=== PATIENT | female | born 1945 | race Caucasian/White ===

== ENCOUNTER → 2016-07-15 | Outpatient (CLI) | payer MEDICARE ==
[~2016-07-15] MED LIST: CALCIUM + D 6001 TA1; CALCIUM + D SO1 EACH PO; FISH OIL 1,001000 M1 PO; FOSAMAX PO; LIPITOR40 MG PO; MULTI VITAMIN1 EACH PO; PROTONIX PO; RECLAST 55 MG/100 M IV; STOOL SOFTENER100 M1 PO; VITAMIN C W/R1000 M1 PO; ZOCOR PO
--- NOTE | ~2016-07-15 | MR103 ---
[facility] A Service of [facility] RADIOLOGY TEXT RESULTS PATIENT: JEB RODRIGUEZ LOCATION: [facility] : 43 UNIT #: [id number] AGE: [address]: Stephen Bello MD SEX: F ORDER DR: [id number] [facility] [address] [place], [place] [address] [id number] O MR#: [id number] #: [id number] NAME: JEB RODRIGUEZ. : 1945 SEX: F STUDY DATE/TIME: 07/15/2016 7:49 UNIT: [facility] ROOM: STUDY DESCRIPTION: MR Knee Wo Contrast Lt Attending Physician: Stephen Bello M.D. Ordering Physician: Stephen Bello M.D. Primary Care Physician: Aamir Pearce M.D. MRI CENTER REPORT This report is preliminary unless electronic signature is present. EXAM MRI of the left knee without contrast. HISTORY 68-year-old female left knee pain x 4 months. Pain anterior lateral aspect of the knee. Knee pops. States has had years of pain but recently getting worse. COMPARISON Left knee films 07/13/2016. FINDINGS Multiplanar multiecho imaging was performed of the left knee utilizing a high field magnet dedicated protocol. Examination demonstrates moderate to severe tricompartment osteoarthritis of the knee with lateral compartment predominance. There is extensive full-thickness cartilage loss lateral femoral condyle and lateral tibial plateau. Minimal knee effusion. In the lateral compartment there is a diffuse degenerative tear lateral meniscus, primarily representing a degenerative tear along the inner margin of the posterior horn, but also diffuse degeneration of the anterior horn. No defined type of tear or displaced meniscal fragment. Diffuse full-thickness cartilage loss. In the medial compartment myxoid degeneration of the medial meniscus, but no defined tear. Extensive moderate-grade chondromalacia medial femoral condyle with prominent subarticular osteophytes medial femoral condyle. This is predominately off the posterior weightbearing aspect of the medial femoral condyle. In the patellofemoral compartment there is high-grade chondromalacia lateral patellar facet with full-thickness cartilage loss and moderate grade chondromalacia medial patellar facet. There is lateral subluxation of the patella and corresponding high-grade chondromalacia lateral femoral trochlea. [facility] A Service of [facility] RADIOLOGY TEXT RESULTS PATIENT: JEB RODRIGUEZ LOCATION: [facility] : 43 UNIT #: [id number] AGE: [address]: Stephen Bello MD SEX: F ORDER DR: Anterior cruciate ligament demonstrates myxoid degeneration. The posterior cruciate ligament appears intact. There is nonspecific edema superficial and deep to the MCL. The lateral collateral ligament complex appears intact. Extensor mechanism unremarkable. Extraarticular soft tissues demonstrates mild prepatellar pretibial edema. Small amount of fluid distends the G S bursa, but no sizeable popliteal cyst. IMPRESSION 1. Moderately advanced tricompartment osteoarthritis of the left knee with lateral compartment and patellofemoral compartment prominence as detailed above. Joint effusion suggests active synovitis. 2. Diffuse degeneration and probable degenerative tear inner margin posterior horn and midbody segment lateral meniscus, but no defined type of tear displaced meniscal fragment. 3. 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 4. Small amount of subchondral edema in the far anterior lateral aspect of the lateral tibial plateau with associated subchondral cystic change. This measures less than a centimeter. Dictated by... Paulina Hancock M.D. THIS IS AN ELECTRONICALLY VERIFIED REPORT Paulina Hancock M.D. at 07/17/2016 5:02 PM Stacy TD: 07/17/2016 10:54 JOB #: [id number] MRI CENTER REPORT COPY
== END | disposition home or self-care (01) ==
LOC: CMRI 07:19
DX: M25.562 Pain in left knee (principal); M17.12 Unilateral primary osteoarthritis, left knee; M25.462 Effusion, left knee; M23.301 Other meniscus derangements, unspecified lateral meniscus, left knee; M23.304 Other meniscus derangements, unspecified medial meniscus, left knee; R60.0 Localized edema
CPT/HCPCS: 73721

== ENCOUNTER 2016-08-12 12:40 | Inpatient (IN) | payer MEDICARE ==
--- NOTE | ~2016-08-12 | OR ---
Unit #: [id number] #: [id number] Patient: JEB RODRIGUEZ [id number] [address] [address] [id number] I MR#: [id number] NAME: JEB RODRIGUEZ. ROOM: 326 Date of Procedure: 08/13/2016 Admission Date: 08/12/2016 Surgeon: John Todd M.D. : 1945 Attending Physician: Katie Linares M.D. Primary Care Physician: Aamir Pearce M.D. OPERATIVE REPORT JOB NOTE: CC: PRIMARY CARE PHYSICIAN INDICATIONS FOR PROCEDURE Esophagogastroduodenoscopy with biopsies. INDICATIONS FOR PROCEDURE The patient with upper GI bleeding, anemia of acute blood loss, undergoing upper endoscopy. MEDICATIONS Versed and fentanyl. POSTOPERATIVE FINDINGS 1. No varices. Small hiatal hernia. 2. Gastric remnant appears normal. Minimal gastritis noted. Biopsies taken. 3. There were several superficial ulcers in the proximal jejunum past the anastomosis. There were all clean base with no active bleeding or stigmata of recent bleeding. PLAN Continue with PPI therapy and supportive care. Watch H and H and transfuse further if needed. Treat for H pylori if positive. DESCRIPTION OF PROCEDURE The patient was explained of the procedure, risks, and benefits along with risks and benefits of anesthesia. Endo team was brought to the ICU. Conscious sedation was given using Versed and fentanyl. The scope was then passed down the mouth into the esophagus, stomach, duodenum through the anastomosis into the proximal jejunum. Findings as described. Biopsies taken. Gently, I pulled the scope out of the patient's mouth. She tolerated it well. Dictated by... Pebbles Branham/talia TD: 08/13/2016 22:06 JOB #: [id number] Unit #: [id number] #: [id number] Patient: JEB RODRIGUEZ OPERATIVE REPORT Page 1 of 1 X John Todd MD X PROCEDURE OPERATIVE NOTE
--- NOTE | ~2016-08-12 | CT4 ---
[facility] A Service of [facility] RADIOLOGY TEXT RESULTS PATIENT: JEB RODRIGUEZ LOCATION: [facility] 326-01 : 43 UNIT #: [id number] AGE: [address]: Katie Linares MD SEX: F ORDER DR: [id number] [facility] [address] [place], [place] [address] [id number] I MR#: [id number] Acc #: [id number] NAME: JEB RODRIGUEZ. : 1945 SEX: F STUDY DATE/TIME: 08/12/2016 16:14 UNIT: CEDOF ROOM: 20310 STUDY DESCRIPTION: CT Abd and Pelv Wo Cont Attending Physician: Katie Linares M.D. Ordering Physician: Jim De La Cruz D.O. Primary Care Physician: Aamir Pearce M.D. MEDICAL IMAGING REPORT This report is preliminary unless electronic signature is present EXAM CT abdomen and pelvis without contrast. HISTORY Nausea and vomiting with blood this morning. Abdominal pain, history of gastric bypass, cholecystectomy, hysterectomy, and hiatal hernia repair. TECHNIQUE Axial images performed through the abdomen and pelvis without contrast. Multiplanar reconstructed images reviewed at a workstation. This CT exam was performed with one or more of the following radiation dose reduction techniques: automatic exposure control, adjustment of mA and/or kV according to patient size, and iterative reconstruction. FINDINGS ABDOMEN: Lung bases unremarkable except for bibasilar scarring. No effusions. Patient is post cholecystectomy. Liver and spleen are unremarkable. Pancreas demonstrates atrophy. Right kidney appears normal. The left kidney unremarkable except for a small focus of cortical calcification left mid pole. No discernible mass. Visualized GI tract unremarkable. Retroperitoneum unremarkable. The patient is status post gastric bypass surgery. There is exaggerated lumbar lordosis with grade 1 spondylolisthesis L5 on S1. There is multilevel lower lumbar spine facet disease. No definite pars defect is seen. Degenerative change also seen in the upper lumbar spine as well as within the spinous processes. Surgical clips are noted along the anterior abdominal wall. IMPRESSION 1. No acute intraabdominal or intrapelvic pathology identified. Postsurgical changes as noted. [facility] A Service of [facility] RADIOLOGY TEXT RESULTS PATIENT: JEB RODRIGUEZ LOCATION: [facility] 326-01 : 43 UNIT #: [id number] AGE: [address]: Katie Linares MD SEX: F ORDER DR: 2. Multifocal degenerative disc disease, facet arthropathy, and degeneration within the spinous processes. Dictated by... Paulina Hancock M.D. THIS IS AN ELECTRONICALLY VERIFIED REPORT Paulina Hancock M.D. at 08/13/2016 10:51 PM ANDRÉS/wilson TD: 08/13/2016 07:09 JOB #: [id number] MEDICAL IMAGING REPORT Page 1 of 1 COPY
--- NOTE | ~2016-08-12 | NM18 ---
[facility] A Service of [facility] RADIOLOGY TEXT RESULTS PATIENT: JEB RODRIGUEZ LOCATION: [facility] 326- : 43 UNIT #: [id number] AGE: [address]: Katie Linares MD SEX: F ORDER DR: [id number] [place] [id number] [facility]. [place], [place] [address] [id number] I MR#: [id number] Acc #: [id number] NAME: JEB RODRIGUEZ. : 1945 SEX: F STUDY DATE/TIME: 08/15/2016 13:56 UNIT: [address] ROOM: [address] [place] [address] DESCRIPTION: NM GI Bleeding Scan Attending Physician: Katie Linares M.D. Ordering Physician: Katie Linares M.D. Primary Care Physician: Aamir Pearce M.D. MEDICAL IMAGING REPORT This report is preliminary unless electronic signature is present EXAM INDICATIONS GI bleeding study INDICATIONS Passing blood clots lately. The patient has had upper and prior lower endoscopy with a history of gastric bypass. Upper scope 2 days ago and upper and lower scopes also today. TECHNIQUE The patient's red blood cells were tagged with 22 mCi of technetium 99m pertechnetate. FINDINGS Anterior images were obtained of the lower abdomen and pelvis every 5 minutes up to 2 hours. No gastrointestinal bleeding is identified. IMPRESSION This to get the study was carried out to 2 hours and there is no active GI bleeding visualized. The study covers from the bottom of the heart down through the pelvis. STAT * RESULT Dictated by... Davey Ruvalcaba M.D. THIS IS AN ELECTRONICALLY VERIFIED REPORT Davey Ruvalcaba M.D. at 08/15/2016 4:36 PM [facility] A Service of [facility] RADIOLOGY TEXT RESULTS PATIENT: JEB RODRIGUEZ LOCATION: [facility] 326-01 : 43 UNIT #: [id number] AGE: [address]: Katie Linares MD SEX: F ORDER DR: FREDY/tamy TD: 08/15/2016 16:33 JOB #: [id number] MEDICAL IMAGING REPORT Page 1 of 1 COPY
--- NOTE | ~2016-08-12 | DS ---
Unit #: [id number] #: [id number] Patient: JEB RODRIGUEZ [id number] [address] [place], [place] [address] [id number] MR#: [id number] NAME: JEB RODRIGUEZ. ROOM: 326 Age: 71 Sex: F Admission Date: 08/12/2016 : 1945 Discharge Date: 08/17/2016 Attending Physician: Katie Linares M.D. Primary Care Physician: Aamir Pearce M.D. DISCHARGE SUMMARY ADMISSION DIAGNOSES 1. Gastrointestinal bleed. 2. Hypertension. 3. Status post left total knee arthroplasty. CONSULTANTS 1. John Todd M.D., GI Service. 2. Dr. Linder for Critical Care/Pulmonary management. PROCEDURES On 08/13/2016, EGD with biopsy. Postoperative findings; no varices. Small hiatal hernia. Gastric remnant appears normal. Minimal gastritis. Biopsies taken. Several superficial ulcers in proximal jejunum past the anastomosis, all clean with no active bleeding or stigmata of recent bleeding. On 08/15/2016, procedure colonoscopy to cecum and push enteroscopy. Postoperative findings; colonoscopy done, where it shows diverticulosis. A lot of altered blood in the entire colon. However, after lavaging extensively, no active bleeding was seen. A few small polyps were seen and left alone. Large internal hemorrhoids. Push enteroscopy was carried out to the first 60 cm and the jejunum which was unremarkable other than ulcers, which are small and superficial noted right past the anastomosis and likely to be causing the bleeding. On 08/15/2016, GI bleeding study. Findings; anterior images were obtained of the lower abdomen and pelvis every 5 minutes up to 2 hours. No GI bleeding was identified. DIAGNOSTIC STUDIES LABORATORY RESULTS: Most recent WBC 8.0, hemoglobin 10.3, hematocrit 32.0, platelets 144,000. Sodium 138, potassium 3.5, chloride 108, CO2 of 22, glucose 112, BUN 7, creatinine 0.7, calcium 8.1. Hepatitis panel nonreactive. INR 1.1. ANATOMICAL PATHOLOGY REPORT: Gastric endoscopic biopsy; final diagnosis, gastric antral and fundic-type mucosa with chronic active gastritis with reactive-regenerative atypia. No intestinal metaplasia or neoplasia identified. Lymphoid aggregates present in the lamina propria. No H. pylori like organisms identified by special stain. IMAGING STUDIES: Ultrasound of the abdomen, date of study was 08/13/2016. Impression; suspected mild fatty infiltration of the liver. Otherwise, Unit #: [id number] #: [id number] Patient: JEB RODRIGUEZ unremarkable exam. This patient is postcholecystectomy. CONDITION Stable. DISPOSITION Home. DISCHARGE MEDICATIONS Docusate sodium 100 mg p.o. at bedtime; Lipitor 40 mg p.o. at bedtime; fish oil 1000 mg softgel one p.o. b.i.d.; multivitamin one p.o. daily; calcium plus D soft chewable tablet one p.o. b.i.d.; Fluzone 0.5 mL on a.m. on date of discharge, unless contraindicated; Protonix 40 mg p.o. daily, prescription written for #30 plus one refill written. DISCHARGE INSTRUCTIONS 1. The patient will be discharged home with the assistance of her family. 2. Healthy heart diet per order of Dr. Todd. The patient is to call and schedule followup appointment to be seen by her primary care physician in one week. She is to call and schedule followup appointment with Dr. Todd in 2 weeks. The patient is also to call and schedule followup appointment with Dr. Linder in 2 weeks to follow up on obstructive sleep apnea and for further evaluation of that condition on an outpatient basis. HOSPITAL COURSE The patient is a 71-year-old female, who presented to [facility] on the date of admission with complaints of vomiting blood. The patient has a history of gastric bypass and right total knee arthroplasty and was started on full-dose aspirin 325 mg tablet one p.o. b.i.d. The patient started feeling bloated and started vomiting bright red blood earlier in the morning. The patient was also noted to vomit blood in the emergency department. She was noted to be hypotensive with systolic blood pressure in the 80s. She was admitted to the hospital for further evaluation and management of the above-referenced condition. Please refer to history and physical report for complete details. 1. GI bleed. Dr. John Todd was consulted and the patient underwent a complete GI evaluation as indicated under dictation above. The patient tolerated the procedures well. She reported having some dark tarry stools, which have since resolved. The patient was initially placed on IV Sandostatin drip, which was subsequently changed to Protonix IV drip. The patient has been stable. The patient received a total of 4 units of packed red blood cells throughout the hospital course. Hemoglobin and hematocrit are stable today, hemoglobin 10.3 and hematocrit 32.0. The patient is asymptomatic. She is tolerating food and fluids well at this time. She has been evaluated by Dr. Todd today and is to follow up with him in 2 weeks. The patient has been given a prescription for Protonix 40 mg p.o. daily. The patient was also noted to have acute hypoxic respiratory failure that was not present on admission. At that point, the patient was evaluated by Dr. Linder, who followed her throughout the hospital course. Please note, the patient was also evaluated and managed by Dr. Linder for critical care management throughout the hospital stay. The patient was noted to have possible obstructive sleep apnea. The patient has had no complications in this regard during the hospital course. The patient was advised to follow up with Dr. Linder per his orders in 2 weeks for outpatient evaluation and management of this condition. 2. Hypokalemia. The patient was noted to have hypokalemia, for which potassium was replaced. Potassium is stable today at 3.5. Unit #: [id number] #: [id number] Patient: JEB RODRIGUEZ 3. The patient's vital signs and labs are stable today. She is awake, alert, and oriented x3. She is actively requesting to be discharged home. She has been evaluated by Dr. Linares and discharged home as per above-referenced dictation. Dictated by... Juani David A.P.R.N. for Pebbles [place]/talia TD: 08/18/2016 02:46 JOB #: [id number] DISCHARGE SUMMARY Page 1 of 1 X Juani David APRN X DISCHARGE SUMMARY
--- NOTE | ~2016-08-12 | CO ---
Unit #: [id number] #: [id number] Patient: JEB RODRIGUEZ [id number] [address] [address] [id number] MR#: [id number] NAME: JEB RODRIGUEZ. ROOM: Age: 71 Sex: F Admission Date: 08/12/2016 : 1945 Attending Physician: Jim De La Cruz D.O. Primary Care Physician: Aamir Pearce M.D. CONSULTATION REPORT REASON FOR CONSULTATION Critical management. CHIEF COMPLAINT Vomiting blood. HISTORY OF PRESENT ILLNESS This patient basically is a 71-year-old female with a past medical history significant for gastric bypass, hysterectomy, right knee replacement and gallbladder surgery, history of gastroesophageal reflux disease. The patient takes high dose aspirin at home. The patient presents with the complaint of nausea, vomiting and vomited blood. The patient became hypotensive, given IV fluids. Blood pressure is stable. The patient feels slightly weak. I am seeing her at bedside. The patient denies any headache, blurry vision. No chest pain. PAST MEDICAL HISTORY As described above. SOCIAL HISTORY Nonsmoker. No alcohol. No drug abuse. FAMILY HISTORY None as per record. ALLERGIES Have been reviewed. MEDICATION As per MAR, has been reviewed. PHYSICAL EXAMINATION VITAL SIGNS: Temperature 98. Pulse 87. Respiration 12. Blood pressure 130/70. NEUROLOGIC: Awake, alert, oriented. No neuro deficit. HEENT: PERRLA. NECK: Supple. No JVD. CHEST: Bilateral air entry. Bilateral mild rhonchi. GASTROINTESTINAL: Nontender. Soft. Bowel sounds positive. EXTREMITIES: No edema. SKIN: No rash. LYMPHATIC: No lymphadenopathy. DIAGNOSTIC STUDIES Unit #: [id number] #: [id number] Patient: JEB RODRIGUEZ Labs and imaging have been reviewed. Hemoglobin is 11, hematocrit 34, platelet count 184. ASSESSMENT 1. GI bleed. 2. Acute blood loss anemia. 3. History of gastric bypass. 4. History of dyslipidemia. PLAN 1. Admit the patient in ICU. 2. PPI. 3. GI consulted. 4. Hemoglobin and hematocrit monitoring. 5. Transfuse blood as needed. 6. GI and DVT prophylaxis. The patient will be closely monitored. Please see orders for detailed plan. Thank you very much for this consultation. Dictated by... Pebbles Urbina TD: 08/12/2016 15:30 JOB #: [id number] CONSULTATION REPORT Page 1 of 1 X Pamela Linder MD CONSULTATION REPORT
--- NOTE | ~2016-08-12 | EKG ---
PATIENT: JEB RODRIGUEZ UNIT #: [id number] Ventricular Rate: 93 BPM Atrial Rate: 93 BPM P-R Interval: 140 ms QRS Duration: 76 ms Q-T Interval: 362 ms QTC Calculation(Bezet): 450 ms P Champion: 26 degrees Calculated R Champion: -28 degrees Calculated T Champion: 23 degrees Diagnosis Line: Normal sinus rhythm with sinus arrhythmia Diagnosis Line: Normal ECG Diagnosis Line: No previous ECGs available Diagnosis Line: Confirmed by MARGARITA HOLLOWAY MD ([id number]) on 08/14/2016 Diagnosis Line: 10:55:15 PM INTERPRETING MD: AMIE SCOTT
--- NOTE | ~2016-08-12 | OR ---
Unit #: [id number] #: [id number] Patient: JEB RODRIGUEZ [id number] [address] [place], [place] [address] [id number] I MR#: [id number] NAME: JEB RODRIGUEZ. ROOM: 326 Date of Procedure: 08/15/2016 Admission Date: 08/12/2016 Surgeon: John Todd M.D. : 1945 Attending Physician: Katie Linares M.D. Primary Care Physician: Aamir Pearce M.D. OPERATIVE REPORT PROCEDURE PERFORMED Colonoscopy to cecum and push enteroscopy. INDICATIONS FOR PROCEDURE The patient with persistent gastrointestinal bleeding. She is status post gastric bypass. EGD shows some small superficial ulcers in the proximal jejunum unlikely to be causing bleeding. She is undergoing colonoscopy as well as if needed push enteroscopy for further workup at this time. MEDICATIONS Monitored anesthesia. POSTOPERATIVE FINDINGS 1. Colonoscopy was done first shows diverticulosis. There was a lot of altered blood in the entire colon; however, after lavaging extensively, no active bleeding was seen. A few small polyps were seen and left alone. 2. Large internal hemorrhoids. 3. Push enteroscopy was carried out to the first 60 cm in the jejunum which was unremarkable other than the ulcers, which are small and superficial noted right past the anastomosis unlikely to be causing the bleeding. PLAN We will continue watch H and H and transfuse. We will continue PPI therapy. We will get a GI bleeding scan. DESCRIPTION OF PROCEDURE The patient was explained of the procedure, risks, and benefits along with the risks and benefits of anesthesia. She was brought to the endoscopy room. Propofol anesthesia was given. Rectal exam was done, which was normal. Colonoscope was lubricated, passed up the rectum, advanced under direct vision all the way to the cecum. Extensive lavaging was done. Findings have been described above. No active bleeding or source of bleeding was seen. The scope was then gently pulled out. We used a clean colonoscope for push enteroscopy at this time. The scope was passed down the mouth into the esophagus, stomach, through the anastomosis into the proximal 60 to 80 cm into the jejunum. No active bleeding or signs of bleeding was seen in the entire area. Small ulcer seen in the proximal jejunum right past the anastomosis where unlikely to be causing bleeding. Gently, the scope was pulled out. She tolerated it well. No major complications were seen. Unit #: [id number] #: [id number] Patient: JEB RODRIGUEZ Dictated by... Pebbles Branham/talia TD: 08/16/2016 01:50 JOB #: [id number] OPERATIVE REPORT Page 1 of 1 X John Todd MD X PROCEDURE OPERATIVE NOTE
--- NOTE | ~2016-08-12 | US6 ---
[facility] A Service of [facility] RADIOLOGY TEXT RESULTS PATIENT: JEB RODRIGUEZ LOCATION: [facility] 326- : 43 UNIT #: [id number] AGE: [address]: Katie Linares MD SEX: F ORDER DR: [id number] [facility] [address] [place], [place] [address] [id number] MR#: [id number] Acc #: [id number] NAME: JEB RODRIGUEZ. : 1945 SEX: F STUDY DATE/TIME: 08/13/2016 14:20 UNIT: [address] ROOM: [facility] STUDY DESCRIPTION: US Abdominal Limited Attending Physician: Katie Linares M.D. Ordering Physician: John Todd M.D. Primary Care Physician: Aamir Pearce M.D. MEDICAL IMAGING REPORT This report is preliminary unless electronic signature is present EXAM Limited abdominal sonogram HISTORY 68-year-old female elevated LFTs, prior cholecystectomy and gastric bypass surgery. Real-time examination demonstrates diffuse increased echogenicity of the liver could reflect fatty infiltration. No focal mass lesions identified. No intra or extrahepatic ductal dilatation is identified. Common bile duct measures 2.8 mm. The gallbladder surgically absent. Right kidney unremarkable. No free fluid. Region of the pancreas unremarkable but poorly visualized due to bowel gas. IMPRESSION Suspected mild fatty infiltration of the liver, otherwise unremarkable exam of this patient post cholecystectomy. Dictated by... Paulina Hancock M.D. THIS IS AN ELECTRONICALLY VERIFIED REPORT Paulina Hancock M.D. at 08/14/2016 10:05 AM ANDRÉS/mark TD: 08/14/2016 07:41 JOB #: [id number] MEDICAL IMAGING REPORT Page 1 of 1 COPY
--- NOTE | ~2016-08-12 | CO ---
Unit #: [id number] #: [id number] Patient: JEB RODRIGUEZ [id number] [address] [address] [id number] I MR#: [id number] NAME: JEB RODRIGUZE. ROOM: 326 Age: 71 Sex: F Admission Date: 08/12/2016 : 1945 Attending Physician: Katie Linares M.D. Primary Care Physician: Aamir Pearce M.D. Consultation Date: 08/13/2016 CONSULTATION REPORT PRIMARY CARE PHYSICIAN Dr. Connell. REASON FOR CONSULTATION GI bleeding. HISTORY OF PRESENTING ILLNESS Ms. Rodriguez is a 71-year-old pleasant female. She presented yesterday to the emergency room with complaints of vomiting of blood. It started yesterday. She had several bouts. She was brought to the emergency room where she was initially hypotensive, became stable after some resuscitation with IV fluids etc. She since then has not been throwing up. Her hemoglobin did drop from value of 11 two days ago to 7.2 yesterday and required blood transfusions. She had gastric bypass surgery in 1982, has not really had any ulcers or other upper GI problems in the interim. PAST MEDICAL HISTORY Significant for gastric bypass, hysterectomy, right knee replacement. Recently, she is status post gallbladder resection. ALLERGIES None. MEDICATIONS At home included recently taking aspirin 325 along with some NSAIDs after her knee surgery, Lipitor as well as fish oil which would stop for 2 weeks. SOCIAL HISTORY Nonsmoker. Nonalcoholic. FAMILY HISTORY Noncontributory. REVIEW OF SYSTEMS A complete 10-point review of systems was done, which is unremarkable other than as mentioned above. PHYSICAL EXAMINATION VITAL SIGNS: Stable now on temperature 98, pulse 107, blood pressure 131/97. HEENT: Pupils equal and reactive. Sclerae anicteric. Oral mucosa moist. NECK: No JVD. No lymphadenopathy. Unit #: [id number] #: [id number] Patient: JEB RODRIGUEZ CHEST: Clear to auscultation bilaterally. CARDIOVASCULAR: Regular rate and rhythm. No murmurs. ABDOMEN: Soft, nontender, and nondistended. EXTREMITIES: Without clubbing, cyanosis, or edema. NEUROLOGIC: Intact. SKIN: Warm and dry. DIAGNOSTIC STUDIES LABORATORY RESULTS: Hemoglobin of 7.2, dropped from 11; platelet count of 137. AST 50, ALT 101. Lipase of 14. ASSESSMENT AND PLAN 1. The patient with significant upper gastrointestinal bleeding, which is acute possibility of ulcer disease, also given her overweight as well as abnormal LFTs. Liver cirrhosis cannot be ruled out with variceal bleeding possibly. She will be started on Protonix as well as octreotide infusions and upper endoscopy will be planned urgently. We will continue with supportive care. 2. Anemia secondary to acute blood loss, transfuse, watch hemoglobin and hematocrit give further transfusions as needed also. 3. Abnormal LFTs, most likely related to nonalcoholic steatohepatitis. We will check hepatitis profile. We will also get a right upper quadrant ultrasound for further evaluation. Thank you, Dr. Ramirez, for this interesting consult. We will follow along. Dictated by... Pebbles Branham/talia TD: 08/13/2016 23:31 JOB #: [id number] CONSULTATION REPORT Page 1 of 1 X John Todd MD X CONSULTATION REPORT
--- NOTE | ~2016-08-12 | HP ---
Unit #: [id number] #: [id number] Patient: JEB RODRIGUEZ [id number] [address] [address] [id number] E MR#: [id number] NAME: JEB RODRIGUEZ ROOM: Age: 71 Sex: F Admission Date: 08/12/2016 : 1945 Attending Physician: Jim De La Cruz D.O. Primary Care Physician: Aamir Pearce M.D. HISTORY AND PHYSICAL CHIEF COMPLAINT Vomiting blood. HISTORY OF PRESENT ILLNESS The patient is a 71-year-old female with history of gastric bypass and right knee replacement last Sunday and was started on full dose aspirin 325 mg. The patient presented to the emergency room complaining of the abdominal bloating. The patient states the patient was changing the dressing earlier this morning and was feeling bloated. The patient started vomiting bright red blood earlier this morning. The patient vomited blood again in the emergency room. The patient was also found to be hypotensive with the systolic blood pressure in the eighties. The patient denies any fever, chills, chest pain, palpitations. The patient stated the patient's left knee surgical wound is stable and there is no drainage or any pain. The patient is being admitted for the above reason. The patient's hemoglobin was found to be 11. PAST MEDICAL HISTORY History of gastroesophageal reflux disease. PAST SURGICAL HISTORY Gastric bypass, hysterectomy, right knee replacement and hiatal hernia repair. SOCIAL HISTORY No history of smoking cigarettes or drinking alcohol, any illicit drug abuse. FAMILY HISTORY Reviewed and none. ALLERGIES No known drug allergies. HOME MEDICATIONS 1. Multivitamin with calcium. 2. Vitamin D. 3. Lipitor. 4. Stool softeners. 5. Fish oil. PHYSICAL EXAMINATION GENERAL APPEARANCE: The patient is laying on the bed not in acute distress. Unit #: [id number] #: [id number] Patient: JEB RODRIGUEZ VITAL SIGNS: Temperature 98.2. Pulse 107. Respiratory rate 18. Blood pressure 131/97 and that is down to 80/60 and sating 97% on room air. HEENT: Head: Atraumatic, normocephalic. Pupils equal, round, reacting to light and accommodation. Dry mucous membrane. NECK: Supple. No JVD. LUNGS: Decreased air entry at the bases. HEART: Regular rate and rhythm. ABDOMEN: Soft. Positive for feels the bloating and discomfort. EXTREMITIES: No cyanosis. No clubbing. Status post left knee replacement with the surgical site is clean, dry and intact. DIAGNOSTIC STUDIES LABORATORY: Glucose 140, BUN 16, creatinine 0.5, sodium 138, potassium 4.6, chloride 107, bicarb 24, calcium 8.6, albumin 3.2, AST 31, ALT 50, alkaline phosphatase 101. Lipase 14. INR 1.1. Troponin less than 0.05. WBC 8.7, hemoglobin 11.1, hematocrit 34.9, platelets 184. CARDIOVASCULAR: The EKG shows normal sinus rhythm with a rate of 93 beats per minute, QTC of 450. ASSESSMENT 1. GI bleed. 2. Hypertension. 3. Status post left total knee replacement. PLAN Admit the patient to the ICU with telemetry. The patient will be bolused with IV fluids, normal saline at 150 mL/hour for fluid replacement and continue with the Protonix and octreotide and awaiting the GI consult for emergent endoscopy. Repeat the labs, CBC now, and transfuse the hemoglobin if it less than 8. Check the guaiac test if it is not done. Check the lactic level also. Further recommendations will follow as more lab results are available. Dictated by Pebbles Honeycutt TD: 08/12/2016 18:03 JOB #: [id number] HISTORY AND PHYSICAL Page 1 of 1 X X HISTORY AND PHYSICAL
[~2016-08-12 12:40] MED LIST changes: -CALCIUM + D SO1 EACH PO; -FISH OIL 1,001000 M1 PO; -LIPITOR40 MG PO; -MULTI VITAMIN1 EACH PO; -PROTONIX PO; -STOOL SOFTENER100 M1 PO; -VITAMIN C W/R1000 M1 PO
[2016-08-12 13:10] LABS: BASOPHIL# 0.1 X10e3 (0-0.3); BASOPHIL% 0.8 % (0-2.5); EOSINOPHIL# 0.3 X10e3 (0-0.7); EOSINOPHIL% 3.8 % (0.0-7.0); HEMATOCRIT 34.9 % (35.0-45.0); HEMOGLOBIN 11.1 gm/dL (12.0-16.0); LYMPHOCYTE# 1.3 X10e3 (1.0-3.5); LYMPHOCYTE% 15.2 % (17.0-45.0); MEAN CELL VOLUME 81.4 FL (83-96); MEAN CORPUSCULAR HEMOGLOBIN 25.8 PG (28-34); MEAN CORPUSCULAR HGB CONC 31.7 g/dL (30-36); MEAN PLATELET VOLUME 9.7 FL (6.5-11.5); MONOCYTE# 0.7 X10e3 (0-1.0); MONOCYTE% 8.3 % (3.0-12.0); NEUTROPHIL# 6.3 X10e3 (1.5-7.1); NEUTROPHIL% 71.9 % (40-75); PLATELET COUNT 184 X10e3 (140-420); RED BLOOD COUNT 4.29 X10e (3.90-5.30); RED CELL DISTRIBUTION WIDTH 15.5 % (11.0-15.5); WHITE BLOOD COUNT 8.7 X10e3 (4.0-10.5)
[2016-08-12 13:11] LABS: DIFF IND NO
[2016-08-12 13:22] LABS: INR 1.1; PARTIAL THROMBOPLASTIN TIME 23.8 SECONDS (23.5-31.3)
[2016-08-12 13:38] LABS: ALBUMIN SERUM 3.2 g/dL (3.5-5.0); BILIRUBIN, DIRECT 0.1 mg/dL (0.0-0.2); BILIRUBIN,INDIRECT 0.2 mg/dL (0.0-0.9); BILIRUBIN,TOTAL 0.3 mg/dL (0.2-2.0); CALCIUM SERUM 8.6 mg/dL (8.4-10.2); CREATININE SERUM 0.5 mg/dL (0.6-1.4); POTASSIUM 4.6 mmol/L (3.5-5.1); PROTEIN TOTAL SERUM 6.2 g/dL (6.0-8.3)
[2016-08-12] MEDS ORDERED: MULTI VITAMIN1 EACH PO (15:12)
[2016-08-12] MEDS ORDERED: CALCIUM + D SO1 EACH PO (15:13)
[2016-08-12] MEDS ORDERED: LIPITOR40 MG PO (15:13)
[2016-08-12] MEDS ORDERED: VITAMIN C W/R1000 M1 PO (15:13)
[2016-08-12] MEDS ORDERED: STOOL SOFTENER100 M1 PO (15:14)
[2016-08-12] MEDS ORDERED: FISH OIL 1,001000 M1 PO (15:14)
[2016-08-12 17:03] LABS: POC - CKMB 1.8 ng/mL (0.0-7.9); POC - TROPONIN <0.05 ng/mL (<=0.05)
[2016-08-12 17:13] LABS: POC - CKMB 1.3 ng/mL (0.0-7.9); POC - TROPONIN <0.05 ng/mL (<=0.05)
[2016-08-12 18:09] LABS: BASOPHIL# 0.1 X10e3 (0-0.3); BASOPHIL% 0.7 % (0-2.5); EOSINOPHIL# 0.1 X10e3 (0-0.7); EOSINOPHIL% 0.6 % (0.0-7.0); HEMATOCRIT 29.7 % (35.0-45.0); HEMOGLOBIN 9.3 gm/dL (12.0-16.0); LYMPHOCYTE# 1.5 X10e3 (1.0-3.5); LYMPHOCYTE% 14.1 % (17.0-45.0); MEAN CELL VOLUME 82.7 FL (83-96); MEAN CORPUSCULAR HGB CONC 31.5 g/dL (30-36); MEAN PLATELET VOLUME 9.4 FL (6.5-11.5); MONOCYTE# 0.7 X10e3 (0-1.0); NEUTROPHIL% 77.6 % (40-75); PLATELET COUNT 175 X10e3 (140-420); RED BLOOD COUNT 3.59 X10e (3.90-5.30); RED CELL DISTRIBUTION WIDTH 15.4 % (11.0-15.5); WHITE BLOOD COUNT 10.3 X10e3 (4.0-10.5)
[2016-08-12 18:10] LABS: DIFF IND NO
[2016-08-12 21:25] LABS: HEMATOCRIT 27.3 % (35.0-45.0); HEMOGLOBIN 8.7 gm/dL (12.0-16.0)
[2016-08-12 23:17] LABS: HEMOGLOBIN 8.2 gm/dL (12.0-16.0)
[2016-08-13 02:15] LABS: HEMATOCRIT 22.5 % (35.0-45.0); HEMOGLOBIN 7.2 gm/dL (12.0-16.0)
[2016-08-13 07:35] LABS: BASOPHIL# 0.1 X10e3 (0-0.3); BASOPHIL% 0.7 % (0-2.5); EOSINOPHIL# 0.3 X10e3 (0-0.7); EOSINOPHIL% 2.4 % (0.0-7.0); HEMATOCRIT 25.9 % (35.0-45.0); HEMOGLOBIN 8.3 gm/dL (12.0-16.0); LYMPHOCYTE# 2.3 X10e3 (1.0-3.5); LYMPHOCYTE% 20.9 % (17.0-45.0); MEAN CELL VOLUME 82.3 FL (83-96); MEAN CORPUSCULAR HEMOGLOBIN 26.4 PG (28-34); MEAN CORPUSCULAR HGB CONC 32.1 g/dL (30-36); MEAN PLATELET VOLUME 9.6 FL (6.5-11.5); NEUTROPHIL# 7.2 X10e3 (1.5-7.1); PLATELET COUNT 137 X10e3 (140-420); RED BLOOD COUNT 3.14 X10e (3.90-5.30); RED CELL DISTRIBUTION WIDTH 15.7 % (11.0-15.5); WHITE BLOOD COUNT 10.8 X10e3 (4.0-10.5)
[2016-08-13 07:42] LABS: DIFF IND NO
[2016-08-13 08:01] LABS: BUN/CREATININE RATIO 33.33; CALCIUM SERUM 7.5 mg/dL (8.4-10.2); CREATININE SERUM 0.6 mg/dL (0.6-1.4); GLOM FILT RATE Estimated 90.4 mL/min (>60); POTASSIUM 4.6 mmol/L (3.5-5.1)
[2016-08-13 12:09] LABS: HEMATOCRIT 27.9 % (35.0-45.0)
[2016-08-13 16:04] LABS: HEMATOCRIT 24.3 % (35.0-45.0)
[2016-08-13 20:31] LABS: HEMATOCRIT 26.3 % (35.0-45.0); HEMOGLOBIN 8.3 gm/dL (12.0-16.0)
[2016-08-14 02:04] LABS: BASOPHIL# 0.1 X10e3 (0-0.3); BASOPHIL% 0.8 % (0-2.5); EOSINOPHIL# 0.7 X10e3 (0-0.7); EOSINOPHIL% 7.6 % (0.0-7.0); HEMATOCRIT 24.4 % (35.0-45.0); LYMPHOCYTE# 2.6 X10e3 (1.0-3.5); LYMPHOCYTE% 26.7 % (17.0-45.0); MEAN CELL VOLUME 82.5 FL (83-96); MEAN CORPUSCULAR HGB CONC 32.7 g/dL (30-36); MEAN PLATELET VOLUME 8.4 FL (6.5-11.5); MONOCYTE# 0.7 X10e3 (0-1.0); MONOCYTE% 7.6 % (3.0-12.0); NEUTROPHIL# 5.5 X10e3 (1.5-7.1); NEUTROPHIL% 57.3 % (40-75); PLATELET COUNT 128 X10e3 (140-420); RED BLOOD COUNT 2.96 X10e (3.90-5.30); RED CELL DISTRIBUTION WIDTH 15.9 % (11.0-15.5); WHITE BLOOD COUNT 9.6 X10e3 (4.0-10.5)
[2016-08-14 02:08] LABS: DIFF IND NO
[2016-08-14 02:27] LABS: ALBUMIN SERUM 2.6 g/dL (3.5-5.0); BILIRUBIN,TOTAL 0.5 mg/dL (0.2-2.0); BUN/CREATININE RATIO 28.33; CALCIUM SERUM 7.8 mg/dL (8.4-10.2); CREATININE SERUM 0.6 mg/dL (0.6-1.4); GLOM FILT RATE Estimated 90.4 mL/min (>60); PROTEIN TOTAL SERUM 4.8 g/dL (6.0-8.3)
[2016-08-14 10:15] LABS: HEMATOCRIT 27.1 % (35.0-45.0); HEMOGLOBIN 8.6 gm/dL (12.0-16.0)
[2016-08-14 18:19] LABS: HEMATOCRIT 32.6 % (35.0-45.0); HEMOGLOBIN 10.4 gm/dL (12.0-16.0)
[2016-08-15 00:01] LABS: HEMATOCRIT 26.6 % (35.0-45.0); HEMOGLOBIN 8.5 gm/dL (12.0-16.0)
[2016-08-15 06:36] LABS: HEMATOCRIT 23.1 % (35.0-45.0); HEMOGLOBIN 7.5 gm/dL (12.0-16.0); MEAN CELL VOLUME 82.4 FL (83-96); MEAN CORPUSCULAR HEMOGLOBIN 26.7 PG (28-34); MEAN CORPUSCULAR HGB CONC 32.4 g/dL (30-36); MEAN PLATELET VOLUME 8.9 FL (6.5-11.5); RED BLOOD COUNT 2.8 X10e (3.90-5.30); RED CELL DISTRIBUTION WIDTH 16.4 % (11.0-15.5); WHITE BLOOD COUNT 6.9 X10e3 (4.0-10.5)
[2016-08-15 07:33] LABS: CALCIUM SERUM 7.7 mg/dL (8.4-10.2); CREATININE SERUM 0.5 mg/dL (0.6-1.4); POTASSIUM 3.3 mmol/L (3.5-5.1)
[2016-08-15 12:43] LABS: HEMATOCRIT 25.5 % (35.0-45.0); HEMOGLOBIN 8.1 gm/dL (12.0-16.0)
[2016-08-15 18:00] LABS: HEMOGLOBIN 8.7 gm/dL (12.0-16.0)
[2016-08-16 06:59] LABS: HEMATOCRIT 28.8 % (35.0-45.0); HEMOGLOBIN 9.4 gm/dL (12.0-16.0)
[2016-08-16 08:42] LABS: ALBUMIN SERUM 2.6 g/dL (3.5-5.0); BILIRUBIN,TOTAL 0.9 mg/dL (0.2-2.0); BUN/CREATININE RATIO 8.33; CALCIUM SERUM 7.4 mg/dL (8.4-10.2); CREATININE SERUM 0.6 mg/dL (0.6-1.4); GLOM FILT RATE Estimated 90.4 mL/min (>60); MAGNESIUM 1.8 mg/dL (1.6-3.0); POTASSIUM 3.6 mmol/L (3.5-5.1); PROTEIN TOTAL SERUM 4.7 g/dL (6.0-8.3)
[2016-08-16 13:14] LABS: HEMATOCRIT 33.6 % (35.0-45.0); HEMOGLOBIN 10.8 gm/dL (12.0-16.0); MEAN CELL VOLUME 85.2 FL (83-96); MEAN CORPUSCULAR HEMOGLOBIN 27.5 PG (28-34); MEAN CORPUSCULAR HGB CONC 32.3 g/dL (30-36); MEAN PLATELET VOLUME 9.3 FL (6.5-11.5); RED BLOOD COUNT 3.94 X10e (3.90-5.30); RED CELL DISTRIBUTION WIDTH 16.2 % (11.0-15.5); WHITE BLOOD COUNT 9.1 X10e3 (4.0-10.5)
[2016-08-16 18:30] LABS: HEMATOCRIT 32.8 % (35.0-45.0); HEMOGLOBIN 10.6 gm/dL (12.0-16.0)
[2016-08-17 00:20] LABS: HA AB IGM (HEPPAN) Nonreactive (Nonreactive); HB CORE AB IGM (HEPPAN) Nonreactive (Nonreactive); HB S AG (HEPPAN) Nonreactive (Nonreactive); HEP C AB (HEPPAN) Nonreactive (Nonreactive); HEP C AB SIGNAL TO CUTOFF 0.59 ratio (<1.00)
[2016-08-17 00:41] LABS: HEMATOCRIT 29.9 % (35.0-45.0); HEMOGLOBIN 9.7 gm/dL (12.0-16.0)
[2016-08-17 06:30] LABS: HEMOGLOBIN 10.3 gm/dL (12.0-16.0); MEAN CELL VOLUME 84.5 FL (83-96); MEAN CORPUSCULAR HEMOGLOBIN 27.2 PG (28-34); MEAN CORPUSCULAR HGB CONC 32.2 g/dL (30-36); MEAN PLATELET VOLUME 9.2 FL (6.5-11.5); RED BLOOD COUNT 3.78 X10e (3.90-5.30); RED CELL DISTRIBUTION WIDTH 16.1 % (11.0-15.5)
[2016-08-17 07:08] LABS: CALCIUM SERUM 8.1 mg/dL (8.4-10.2); CREATININE SERUM 0.7 mg/dL (0.6-1.4); POTASSIUM 3.5 mmol/L (3.5-5.1)
[2016-08-17] MEDS ORDERED: PROTONIX PO (14:27)
== END 2016-08-17 15:40 | disposition home or self-care (01) | DRG 377 ==
LOC: CED 12:40 → CEDOF 17:17 → CICCU3 08-13 08:39 → C3A PCU 08-13 20:24
PROVIDERS: Emergency Medicine; Internal Medicine
PROC: 0DB68ZX Excision of Stomach, Via Natural or Artificial Opening Endoscopic, Diagnostic (ICD-10-PCS; 2016-08-13)
PROC: 30233N1 Transfusion of Nonautologous Red Blood Cells into Peripheral Vein, Percutaneous Approach (ICD-10-PCS; 2016-08-13 09:00)
PROC: 3E1H88Z Irrigation of Lower GI using Irrigating Substance, Via Natural or Artificial Opening Endoscopic (ICD-10-PCS; 2016-08-15)
PROC: 0DJD8ZZ Inspection of Lower Intestinal Tract, Via Natural or Artificial Opening Endoscopic (ICD-10-PCS; principal; 2016-08-15 08:45)
DX: K92.2 Gastrointestinal hemorrhage, unspecified (principal); J96.01 Acute respiratory failure with hypoxia; R57.1 Hypovolemic shock; I11.0 Hypertensive heart disease with heart failure; I50.9 Heart failure, unspecified; D62 Acute posthemorrhagic anemia; K21.9 Gastro-esophageal reflux disease without esophagitis; K57.90 Diverticulosis of intestine, part unspecified, without perforation or abscess without bleeding; K63.5 Polyp of colon; I95.1 Orthostatic hypotension; Z96.652 Presence of left artificial knee joint; K44.9 Diaphragmatic hernia without obstruction or gangrene; K29.70 Gastritis, unspecified, without bleeding; K64.8 Other hemorrhoids; E87.6 Hypokalemia; I25.10 Atherosclerotic heart disease of native coronary artery without angina pectoris; Z95.1 Presence of aortocoronary bypass graft; E78.5 Hyperlipidemia, unspecified; M48.06 Spinal stenosis, lumbar region; F32.9 Major depressive disorder, single episode, unspecified; F17.210 Nicotine dependence, cigarettes, uncomplicated; Z79.82 Long term (current) use of aspirin; Z79.4 Long term (current) use of insulin
CPT/HCPCS: 36415; 74176; 76705; 78278; 80048; 80053; 80074; 80076; 82553; 82947; 83605; 83690; 83735; 84132; 84484; 85014; 85018; 85025; 85027; 85610; 85730; 86850; 86900; 86901; 86923; 88305; 88312; 93005; 94640; 94760; 94761; 96361; 96374; 96375; 99285; A9560; C9113; J2250; J2354; J2405; J3010; P9016

== ENCOUNTER 2016-08-18 12:56 | Inpatient (IN) | payer MEDICARE ==
--- NOTE | ~2016-08-18 | CO ---
Unit #: [id number] #: [id number] Patient: JEB RODRIGUEZ [id number] [address] [place], [place] [address] [id number] I MR#: [id number] NAME: JEB RODRIGUEZ. ROOM: 54266 Age: 71 Sex: F Admission Date: 08/18/2016 : 1945 Attending Physician: Wes Calderon M.D. Primary Care Physician: Aamir Pearce M.D. Consultation Date: 08/19/2016 CONSULTATION REPORT REASON FOR CONSULTATION Left leg deep vein thrombosis. HISTORY OF PRESENT ILLNESS Ms. Rodriguez is a 71-year-old lady with a history of degenerative joint disease involving her left knee. She recently underwent arthroscopic surgery on her left knee and was placed on aspirin perioperatively. She has a history of gastric bypass and was told not to take aspirin in the past. She was admitted to [facility] a week ago with GI bleeding. Her workup included upper and lower endoscopy as well as a tagged red blood cell scan. There was no active bleeding noted on any of her evaluation. She was subsequently discharged, but now returns with swelling of her left leg. She was identified with thrombus in her left popliteal vein and left gastrocnemius vein. Consultation was requested at this time to evaluate the patient for possible inferior vena cava filter placement. At time of evaluation, she is on an IV heparin drip and has shown no evidence of further bleeding. Although she has some swelling in her left leg, she denies any significant discomfort of her leg. She denies any chest pain or shortness of breath to suggest pulmonary embolus. She has no prior history of deep vein thrombosis. She denies any family history of abnormal clotting problems. However, she did have a sister who of a pulmonary embolus following surgery on her knee. PAST MEDICAL HISTORY Morbid obesity and hyperlipidemia. PAST SURGICAL HISTORY Left knee arthroscopy. Right knee replacement, hysterectomy, cholecystectomy, reconstructive surgery on her right wrist for a spider bite. MEDICATIONS Docusate, Lipitor, fish oil, multivitamin, calcium plus D, and Protonix. ALLERGIES None. SOCIAL HISTORY She is single and lives in [place]. Her son recently moved in with her. She quit smoking more than 30 years ago. She does not drink alcohol. Unit #: [id number] #: [id number] Patient: JEB RODRIGUEZ FAMILY HISTORY Her father had coronary artery disease. Her mother was in good general health. REVIEW OF SYSTEMS 10-point review of systems is negative except for her recent GI bleed. PHYSICAL EXAMINATION VITAL SIGNS: Temperature 97.8, pulse 82, respirations 16, blood pressure 133/59. GENERAL APPEARANCE: Obese white female. Very pleasant and cooperative. Fully alert and oriented. Good mood. Appropriate affect. Fair historian. No acute distress. HEENT: Extraocular movements intact. No xanthelasma of the eyelids. Oral mucosa is pink and moist. NECK: No cervical bruits. No JVD. LUNGS: Clear bilaterally. No use of accessory respiratory muscles. HEART: Regular rate and rhythm without murmur. No extra heart sounds. ABDOMEN: Soft, nondistended, and nontender. No palpable masses. No palpable hepatomegaly or splenomegaly. EXTREMITIES: Hands and feet are pink and warm. There are recent incisions on the left knee with Steri-Strips over them. The incisions are all healing well with no erythema or drainage. Mild pitting edema of the left leg compared to the right. Both feet are pink and warm. DIAGNOSTIC STUDIES IMAGING STUDIES: I reviewed her venous Doppler study, which shows partially occlusive thrombus in her left popliteal vein as well as thrombus in her left gastrocnemius vein. These findings are consistent with subacute or even chronic thrombus. There was no evidence of acute deep vein thrombosis in her left leg. IMPRESSION 1. Deep vein thrombosis of the left popliteal vein following recent knee surgery. 2. Recent gastrointestinal bleed. Possibly from aspirin. No active bleeding currently. PLAN She is stable on a heparin drip. My recommendation would be to manage her deep vein thrombosis, primarily with anticoagulation if she has no evidence of further bleeding. If she has bleeding which would pose a contraindication to anticoagulation, then an inferior vena cava filter may be appropriate. These findings and recommendations were discussed with Dr. Wes Calderon. Dictated by... Pebbles Martinez/talia TD: 08/21/2016 05:45 JOB #: [id number] CC: . Unit #: [id number] #: [id number] Patient: JEB RODRIGUEZ CONSULTATION REPORT Page 1 of 1 X Self,Jeremie Graves MD X CONSULTATION REPORT
--- NOTE | ~2016-08-18 | DS ---
Unit #: [id number] #: [id number] Patient: JEB RODRIGUEZ [id number] [address] [place], [place] [address] [id number] I MR#: [id number] NAME: JEB RODRIGUEZ. ROOM: 47709 Age: 71 Sex: F Admission Date: 08/18/2016 : 1945 Discharge Date: 08/19/2016 Attending Physician: Wes Calderon M.D. Primary Care Physician: Aamir Pearce M.D. DISCHARGE SUMMARY DISCHARGE DIAGNOSES 1. Left lower extremity deep vein thrombosis. 2. Iron-deficiency anemia. 3. Recent gastrointestinal bleed. 4. History of left knee surgery. HOSPITAL COURSE The patient is a 71-year-old female, who presents to [facility] Emergency Department with complaint of left lower extremity swelling. Apparently, the patient noted the swelling approximately 2 days prior to presentation. It progressed over those 2 days and now she began to have sensation that she described as a charley horse. Venous Doppler revealed nonocclusive thrombus in the left popliteal and gastrocnemius veins. Initially, the patient was started on low intensity heparin for her DVT. There was some concern for bleeding given her recent history of admission for GI bleed. There was initial discussion of placement of IVC filter; however, further discussion with Vascular Surgery and Hematology altered this plan. Ultimately, it was felt that because of the patient's DVT was in the popliteal and gastrocnemius regions only. There was low risk for embolization and that prophylactic doses of Lovenox only would be needed. This was welcome given the patient's GI bleed and risks from full anticoagulation on Coumadin. Given the need for only prophylactic doses of Lovenox. The patient is being discharged home at this time and should follow up with Dr. Medina. DISCHARGE MEDICATIONS Stool softener 100 mg at bedtime, Lipitor 40 mg p.o. q.h.s., fish oil daily, multivitamin daily, Protonix 40 mg p.o. daily, calcium plus vitamin D daily, Lovenox 40 mg subcu daily x3 months. FOLLOWUP As mentioned above, the patient should follow up with Dr. Medina in 1 week. Dictated by... Wes Calderon M.D. LUPIS/talia CHAVEZ: 08/19/2016 11:55 Unit #: [id number] #: [id number] Patient: JENNIFERJEB TD: 08/20/2016 00:38 JOB #: [id number] DISCHARGE SUMMARY Page 1 of 1 X Wes Calderon MD X DISCHARGE SUMMARY
--- NOTE | ~2016-08-18 | CR72 ---
[facility] A Service of [facility] & [facility] RADIOLOGY TEXT RESULTS PATIENT: JEB RODRIGUEZ LOCATION: [facility] : 43 UNIT #: [id number] AGE: [address]: Mayela Palacio MD SEX: F ORDER DR: [id number] [facility] [address] [facility] [place], [place] [address] [id number] MR#: [id number] Acc #: [id number] NAME: JEB RODRIGUEZ. : 1945 SEX: F STUDY DATE/TIME: 08/18/2016 13:12 UNIT: [facility] ROOM: STUDY DESCRIPTION: CR Chest Single View Portable Attending Physician: Mayela Palacio M.D. Ordering Physician: Mayela Palacio M.D. Primary Care Physician: Aamir Pearce M.D. MEDICAL IMAGING REPORT This report is preliminary unless electronic signature is present EXAM Portable chest radiograph. INDICATION Shortness of breath for 2 days. FINDINGS Comparison made to prior study from May 09, 2010. Cardiomegaly is identified. There is elevation of the right hemidiaphragm with some associated bronchovascular crowding and some scarring is also noted within the minor fissure. Some additional scarring is noted within the left upper lobe. I am not convinced I can see any acute infiltrates. There is stable blunting of the left costophrenic angle. Dictated by... Miroslava Desai M.D. THIS IS AN ELECTRONICALLY VERIFIED REPORT Miroslava Desai M.D. at 08/18/2016 4:53 PM AFF/tmw TD: 08/18/2016 14:27 JOB #: [id number] MEDICAL IMAGING REPORT Page 1 of 1 COPY
--- NOTE | ~2016-08-18 | HP ---
Unit #: [id number] #: [id number] Patient: JEB RODRIGUEZ [id number] [address] [facility]. [place], [place] [address] [id number] E MR#: [id number] NAME: JEB RODRIGUEZ ROOM: Age: 71 Sex: F Admission Date: 08/18/2016 : 1945 Attending Physician: Mayela Palacio M.D. Primary Care Physician: Aamir Pearce M.D. HISTORY AND PHYSICAL CHIEF COMPLAINT Left lower extremity swelling. HISTORY OF PRESENT ILLNESS The patient is a 71-year-old female with past medical history of GI bleed, left knee surgery, GERD, anemia, who presented to the emergency department for evaluation of the above. Of note, the patient was hospitalized at [facility] 08/12 through 08/17/2016 for GI bleed. She underwent EGD with biopsy that showed no varices and a small hiatal hernia. Minimal gastritis was also noted. There were several superficial ulcers in the proximal jejunum with no active bleeding or stigmata of recent bleeding. She also underwent colonoscopy and push enteroscopy that showed diverticulosis as well as blood in the entire colon; however, after lavage, no active bleeding was seen. Large internal hemorrhoids were noted. She also underwent GI bleeding study that showed no source for the bleeding. She was discharged home yesterday. Of note, the patient was placed on aspirin [address] Bello, her orthopedic surgeon, who had performed left knee surgery at [facility] on 08/07/2016. That was, of course, discontinued. The patient states that she has had two days of increasing lower extremity swelling involving the leg. She also reports a sensation of "like a charley horse" in the left calf. A left lower extremity venous Doppler was done today and showed nonocclusive thrombus in the left popliteal vein as well as occlusive-appearing thrombus in the left gastrocnemius vein. She is being admitted to [facility] for evaluation and further treatment. I spoke with Dr. Linder regarding this patient. He actually spoke with Dr. Todd who recommended IVC filter placement. I spoke with Interventional Radiology and they have already left for the day and so will consult Vascular for possible IVC filter placement. PAST MEDICAL HISTORY 1. Admission to [facility] 08/12 through 08/17/2016 for GI bleed. Please see HPI for details. 2. GERD. PAST SURGICAL HISTORY 1. Left knee surgery at [facility] on 08/07/2016. 2. Gastric bypass. 3. Hysterectomy. Unit #: [id number] #: [id number] Patient: JEB RODRIGUEZ 4. Cholecystectomy. ALLERGIES No known allergies. HOME MEDICATIONS Per the discharge summary from yesterday include: 1. Docusate. 2. Lipitor. 3. Fish oil. 4. Multivitamin. 5. Calcium plus D. 6. Protonix. Home medications will need to be reviewed and verified. SOCIAL HISTORY The patient lives alone. She states that her son just recently moved back in with her. No tobacco or alcohol use. FAMILY HISTORY Notable for her father having heart problems. Her sister had a pulmonary embolism postoperatively. REVIEW OF SYSTEMS A complete review of systems is negative except as indicated in the HPI. The patient states that she had a normal bowel movement yesterday with no blood in the stool or black tarry stool. She denies any personal history of blood clots. No chest pain, no difficulty breathing. PHYSICAL EXAMINATION VITAL SIGNS: Temperature 97.8, pulse 82, respirations 16, blood pressure 133/59, oxygen saturation 99% on room air. GENERAL: The patient is a very pleasant female who is awake and alert in no acute distress. HEENT: Head is atraumatic. Mucous membranes are moist. NECK: Supple. Trachea is midline. LUNGS: Clear to auscultation bilaterally with no increased work of breathing. HEART: Regular rate and rhythm. ABDOMEN: Soft, nontender. Bowel sounds present in all four quadrants. EXTREMITIES: The left lower extremity is grossly larger than the right. She is mildly tender to palpation. NEUROLOGIC: Patient is awake and alert. She follows commands. PSYCHIATRIC: Mood and affect are normal. Patient is cooperative. SKIN OF EXAMINED AREAS: Warm and dry. DIAGNOSTIC STUDIES LABORATORY: Complete blood count notable for hemoglobin 10.6, hematocrit 32.8. INR is 1. Comprehensive metabolic panel is essentially normal, albumin is 3.2. IMAGING: Chest x-ray shows no acute abnormality. Left lower extremity venous Doppler is positive for acute DVT, nonocclusive thrombus in the left popliteal vein and occlusive-appearing thrombus in the left gastrocnemius vein. Unit #: [id number] #: [id number] Patient: JEB RODRIGUEZ The patient is a 71-year-old female with: 1. Left lower extremity deep venous thrombosis. 2. History of gastrointestinal bleed. The patient underwent EGD, colonoscopy, push enteroscopy, and red cell scan during the recent admission with no source of bleeding identified. 3. History of left knee surgery. 4. Gastroesophageal reflux disease. 5. Normocytic anemia. The patient's hemoglobin was 10.3 yesterday, it is 10.6 today. PLAN 1. Admit to ICU. 2. Healthy-heart diet. 3. Low-intensity heparin drip with no initial bolus. 4. Hemoglobin and hematocrit q.[address] Martinez for IVC filter placement. 6. Consult Dr. Linder regarding ICU admission. 7. Consult Dr. Ma regarding left lower extremity DVT and recent GI bleed. 8. P.r.n. Tylenol. 9. Repeat labs in the morning including INR. 10. Regarding CODE STATUS, the patient is a FULL CODE. Thirty minutes critical care time spent in the care of this patient (4:20 to 4:50 p.m.). Dictated by Pebbles Damico/bryon TD: 08/18/2016 17:13 JOB #: [id number] HISTORY AND PHYSICAL Page 1 of 1 X Lyla Barnard MD X HISTORY AND PHYSICAL
--- NOTE | ~2016-08-18 | US85 ---
[facility] A Service of [facility] & [facility] RADIOLOGY TEXT RESULTS PATIENT: JEB RODRIGUEZ LOCATION: [facility] [id number] : 43 UNIT #: [id number] AGE: [address]: Wes Calderon MD SEX: F ORDER DR: [id number] [facility] [address] [place], [place] [address] [id number] E MR#: [id number] Acc #: [id number] NAME: JEB RODRIGUEZ : 1945 SEX: F STUDY DATE/TIME: 08/18/2016 13:31 UNIT: LONNIE ROOM: STUDY DESCRIPTION: LE Veins Unilat or Ltd Stdy Attending Physician: Mayela Palacio M.D. Ordering Physician: Gian Boyd M.D. Primary Care Physician: Aamir Pearce M.D. MEDICAL IMAGING REPORT This report is preliminary unless electronic signature is present EXAM Left lower extremity venous ultrasound HISTORY Left knee surgery 1.5 weeks ago. Swelling left foot since that time, continues to get worse. FINDINGS Real-time ultrasonography of the left lower extremity venous structures performed. Arredondo-scale, color Doppler and Doppler pulse-wave interrogation utilized. The left common femoral vein, profunda femoris vein, superficial femoral vein are patent with normal compressibility and normal [id number] color flow on Doppler pulse-wave interrogation. The popliteal vein is diminished compressibility. There is echogenic material within the vein. This is consistent with nonocclusive acute DVT. 1 of the gastrocnemius veins is also thrombosed. This is classified as a deep vein. The anterior tibial, posterior tibial and peroneal veins are patent. The custom feed mill operator helper reports that the great saphenous vein is patent. IMPRESSION Study is positive for acute DVT. Nonocclusive thrombus in the left popliteal vein. The occlusive appearing thrombus in the left gastrocnemius vein. The remaining deep venous structures are patent. See details above. There is no superficial venous thrombosis. Great saphenous vein patent. Findings discussed directly Dr. Palacio at time of this dictation. Dictated by... Brandon Swann M.D. THIS IS AN ELECTRONICALLY VERIFIED REPORT [facility] A Service of [facility] & [facility] RADIOLOGY TEXT RESULTS PATIENT: JEB RODRIGUEZ LOCATION: [facility] [id number] : 43 UNIT #: [id number] AGE: [address]: Wes Calderon MD SEX: F ORDER DR: Brandon Swann M.D. at 08/19/2016 1:54 PM AMAN/zaira TD: 08/18/2016 15:28 JOB #: [id number] MEDICAL IMAGING REPORT Page 1 of 1 COPY
--- NOTE | ~2016-08-18 | CO ---
Unit #: [id number] #: [id number] Patient: JEB RODRIGUEZ [id number] [address] [place], [place] [address] [id number] MR#: [id number] NAME: JEB RODRIGUEZ ROOM: Age: 71 Sex: F Admission Date: 08/18/2016 : 1945 Attending Physician: Mayela Palacio M.D. Primary Care Physician: Aamir Pearce M.D. Consultation Date: 08/18/2016 CONSULTATION REPORT CHIEF COMPLAINT Left leg swelling. REASON FOR CONSULTATION Critical care management. HISTORY OF PRESENT ILLNESS This patient basically has a past medical history of recent GI bleed and obstructive sleep apnea. She presents with the complaint of left leg swelling. She has had recent surgery, two to three weeks ago, for left knee arthroscopy and has been complaining of left leg swelling and found to have DVT. I am seeing her at the bedside. She denies any headache, blurry vision or chest pain. PAST MEDICAL HISTORY As described above. PAST SURGICAL HISTORY SOCIAL HISTORY Nonsmoker. No alcohol or drug abuse. FAMILY HISTORY None. ALLERGIES Reviewed. CURRENT MEDICATIONS As per MAR. Has been reviewed. REVIEW OF SYSTEMS Positive pallor. Positive edema, cyanosis and jaundice. The rest is as per the history of present illness. The rest of the 12-point review of systems has been reviewed and is negative. PHYSICAL EXAMINATION VITALS: Temperature 98, pulse 87, respiratory rate 12, blood pressure 130/70. HEENT: Pupils equally round and reactive to light and accommodation. NECK: Supple. No jugular venous distension. LUNGS: Bilateral air entry. Bilateral mild rhonchi. ABDOMEN: Nontender and soft. Bowel sounds positive. EXTREMITIES: No edema. Unit #: [id number] #: [id number] Patient: JEB RODRIGUEZ SKIN: No rashes or ulcers. LYMPH: No lymphadenopathy. NEUROLOGIC: Awake, alert and oriented. No neurologic deficit. DIAGNOSTIC STUDIES IMAGING: Reviewed. LABORATORY: Reviewed. ASSESSMENT 1. Recent GI bleed. 2. History of left knee surgery. 3. Obstructive sleep apnea. 4. Now presents with DVT. PLAN I discussed with Dr. Todd. He advised to place a filter since the patient has recent GI bleed with undiagnosed source. I have spoken to him regarding anticoagulation and he recommended low-dose heparin in case we need to reverse it. This has been discussed with the patient. She is agreeable. We will do a low-dose heparin, frequent checks of hemoglobin and hematocrit and continue the patient on IV PPI at the same time. Will also get IR consultation for filter placement. Will consult hematology. Thank you very much for this consultation. Will continue to follow the patient. Dictated by... Pebbles Urbina/nikolay TD: 08/18/2016 16:22 JOB #: [id number] CONSULTATION REPORT Page 1 of 1 X Pamela Linder MD X CONSULTATION REPORT
[~2016-08-18 12:56] MED LIST changes: +CALCIUM + D SO1 EACH PO; +FISH OIL 1,001000 M1 PO; +LIPITOR40 MG PO; +MULTI VITAMIN1 EACH PO; +PROTONIX PO; +STOOL SOFTENER100 M1 PO; +VITAMIN C W/R1000 M1 PO
[2016-08-18 14:24] LABS: BASOPHIL# 0.1 X10e3 (0-0.3); BASOPHIL% 1.1 % (0-2.5); DIFF IND NO; EOSINOPHIL# 0.4 X10e3 (0-0.7); EOSINOPHIL% 4.7 % (0.0-7.0); HEMATOCRIT 32.8 % (35.0-45.0); HEMOGLOBIN 10.6 gm/dL (12.0-16.0); LYMPHOCYTE# 1.5 X10e3 (1.0-3.5); MEAN CELL VOLUME 84.7 FL (83-96); MEAN CORPUSCULAR HEMOGLOBIN 27.3 PG (28-34); MEAN CORPUSCULAR HGB CONC 32.2 g/dL (30-36); MONOCYTE# 0.7 X10e3 (0-1.0); MONOCYTE% 9.3 % (3.0-12.0); NEUTROPHIL# 4.9 X10e3 (1.5-7.1); NEUTROPHIL% 64.9 % (40-75); PLATELET COUNT 160 X10e3 (140-420); RED BLOOD COUNT 3.88 X10e (3.90-5.30); RED CELL DISTRIBUTION WIDTH 16.6 % (11.0-15.5); WHITE BLOOD COUNT 7.6 X10e3 (4.0-10.5)
[2016-08-18 14:37] LABS: PROTHROMBIN TIME (PATIENT) 10.9 SECONDS (9.6-11.5)
[2016-08-18 14:38] LABS: PARTIAL THROMBOPLASTIN TIME <20.0 SECONDS (23.5-31.3)
[2016-08-18 14:55] LABS: ALBUMIN SERUM 3.2 g/dL (3.5-5.0); BILIRUBIN, DIRECT 0.1 mg/dL (0.0-0.2); BILIRUBIN,INDIRECT 0.9 mg/dL (0.0-0.9); BUN/CREATININE RATIO 11.66; CALCIUM SERUM 8.4 mg/dL (8.4-10.2); CREATININE SERUM 0.6 mg/dL (0.6-1.4); GLOM FILT RATE Estimated 90.4 mL/min (>60); POTASSIUM 3.7 mmol/L (3.5-5.1)
[2016-08-18 16:55] LABS: URINE SOURCE CLEAN CATCH
[2016-08-18 17:02] LABS: URINE APPEARANCE CLEAR; URINE BILIRUBIN NEG (NEG); URINE BLOOD NEG (NEG); URINE COLOR YELLOW; URINE GLUCOSE NEG (NEG); URINE KETONE NEG (NEG); URINE LEUKOCYTE ESTERASE TRACE (NEG); URINE NITRATE NEG (NEG); URINE PROTEIN NEG (NEG); URINE SPECIFIC GRAVITY 1.007 (1.003-1.035); URINE UROBILINOGEN 0.2 MG/DL (NEG)
[2016-08-18 17:05] LABS: URBCS1 AUWI 0-2 /[HPF] (0-2); URINE BACTERIA AUWI NEG (NEGATIVE); URINE SQUAMOUS EPITHELIAL CELL NONE SEEN /[HPF]
[2016-08-18 17:18] LABS: CULTURE INDICATED? NO
[2016-08-18 20:32] LABS: HEMATOCRIT 31.5 % (35.0-45.0); HEMOGLOBIN 10.3 gm/dL (12.0-16.0)
[2016-08-18 23:35] LABS: HEMATOCRIT 30.9 % (35.0-45.0); HEMOGLOBIN 9.9 gm/dL (12.0-16.0)
[2016-08-19 01:05] LABS: INR 1.1; PROTHROMBIN TIME (PATIENT) 11.1 SECONDS (9.6-11.5)
[2016-08-19 03:13] LABS: HEMATOCRIT 29.4 % (35.0-45.0); HEMOGLOBIN 9.7 gm/dL (12.0-16.0); MEAN CELL VOLUME 83.8 FL (83-96); MEAN CORPUSCULAR HEMOGLOBIN 27.5 PG (28-34); MEAN CORPUSCULAR HGB CONC 32.9 g/dL (30-36); MEAN PLATELET VOLUME 8.7 FL (6.5-11.5); RED BLOOD COUNT 3.51 X10e (3.90-5.30); RED CELL DISTRIBUTION WIDTH 16.6 % (11.0-15.5); WHITE BLOOD COUNT 6.8 X10e3 (4.0-10.5)
[2016-08-19 03:35] LABS: ALBUMIN SERUM 2.9 g/dL (3.5-5.0); BILIRUBIN,TOTAL 0.6 mg/dL (0.2-2.0); BUN/CREATININE RATIO 11.66; CREATININE SERUM 0.6 mg/dL (0.6-1.4); GLOM FILT RATE Estimated 90.4 mL/min (>60); POTASSIUM 3.4 mmol/L (3.5-5.1); PROTEIN TOTAL SERUM 5.2 g/dL (6.0-8.3)
[2016-08-19 08:00] LABS: HEMATOCRIT 30.8 % (35.0-45.0); HEMOGLOBIN 9.9 gm/dL (12.0-16.0)
== END 2016-08-19 22:20 | disposition home or self-care (01) | DRG 301 ==
LOC: CED 12:56 → CEDOF 16:40
PROVIDERS: Emergency Medicine; Family Medicine; Internal Medicine
DX: I82.432 Acute embolism and thrombosis of left popliteal vein (principal); D50.9 Iron deficiency anemia, unspecified; K21.9 Gastro-esophageal reflux disease without esophagitis; Z98.84 Bariatric surgery status; Z90.710 Acquired absence of both cervix and uterus; Z90.49 Acquired absence of other specified parts of digestive tract; G47.33 Obstructive sleep apnea (adult) (pediatric); M17.12 Unilateral primary osteoarthritis, left knee; Z96.651 Presence of right artificial knee joint; Z87.891 Personal history of nicotine dependence
CPT/HCPCS: 36415; 71010; 80048; 80053; 80076; 81003; 85014; 85018; 85025; 85027; 85610; 85730; 93971; 99285; C9113; J1644; J1650

== ENCOUNTER → 2016-11-28 | Outpatient (CLI) | payer MEDICARE ==
--- NOTE | ~2016-11-28 | BD1 ---
[facility] A Service of [facility] RADIOLOGY TEXT RESULTS PATIENT: JEB RODRIGUEZ LOCATION: [facility] : 41 UNIT #: [id number] AGE: [address]: Stephen Bello MD SEX: F ORDER DR: [id number] [facility] [address]. [place], [place] [address] [id number] MR#: [id number] Acc #: [id number] NAME: JEB RODRIGUEZ : 1945 SEX: F STUDY DATE/TIME: 11/28/2016 10:46 UNIT: [facility] ROOM: STUDY DESCRIPTION: BD Dexa Bone Dens 1+ Site Attending Physician: Stephen Bello M.D. Ordering Physician: Stephen Bello M.D. Primary Care Physician: Aamir Pearce M.D. MEDICAL IMAGING REPORT This report is preliminary unless electronic signature is present EXAM DXA scan HISTORY Back pain, postmenopausal osteoporosis. TECHNIQUE Bone mineral density was measured over the lumbar spine and left hip. FINDINGS In the lumbar spine total bone mineral density averages 0.981 g/cm2 with a T-score of -0.6. In the left hip bone mineral density total is 0.720 g/cm2 with a T-score of -1.8. The T-score in the femoral neck is -2.9. There has been no significant change when compared to previous examinations. IMPRESSION Osteopenic changes at the left hip with osteoporosis through the femoral neck. Increased risk of hip fracture. Lumbar spine bone mineral density is within normal limits. Dictated by... Enrico Valdovinos M.D. THIS IS AN ELECTRONICALLY VERIFIED REPORT Enrico Valdovinos M.D. at 11/29/2016 4:41 PM DEVYN/zaira TD: 11/29/2016 10:53 JOB #: [id number] MEDICAL IMAGING REPORT [facility] A Service of [facility] RADIOLOGY TEXT RESULTS PATIENT: JEB RODRIGUEZ LOCATION: [facility] : 41 UNIT #: [id number] AGE: [address]: Stephen Bello MD SEX: F ORDER DR: Page 1 of 1 COPY
== END | disposition home or self-care (01) ==
LOC: CWCC 10:17
DX: M81.0 Age-related osteoporosis without current pathological fracture (principal); M54.5 Low back pain; M25.552 Pain in left hip; M25.551 Pain in right hip; M85.88 Other specified disorders of bone density and structure, other site
CPT/HCPCS: 77080